=== PATIENT | male | born 1995 ===

== ENCOUNTER 2018-01-23 20:34 | Emergency (ER) | payer SELFPAY ==
[~2018-01-23] VITALS: Ht 188 cm; Wt 81.6 kg
--- NOTE | 2018-01-23 20:47 | NUR ---
PT PRESENTS TO ER W/ FACIAL LACERATION TO RT CHEEK. PER PT, HE WAS PLAYING BASKETBALL WHEN HE WAS HIT BY ANOTHER PLAYER, RESULTING IN LAC. DENIES LOC. PT IS [id number]&[id number]. NO ACTIVE BLEEDING OR DISTRESS NOTED.
--- NOTE | 2018-01-23 20:49 | NUR ---
DR ABENA MARSHALL MD AT BEDSIDE FOR MSE.
--- NOTE | 2018-01-23 20:55 | NUR ---
DR ABENA MARSHALL MD AT BEDSIDE FOR SUTURING.
--- NOTE | 2018-01-23 21:07 | NUR ---
Patient discharged to home in stable conditon. Written and verbal after care instructions given. Patient verbalizes understanding of instructions. PT ambulated from ER w/ steady gait. Denies N/V, dizziness, or headache. No bleeding noted at site. No distress noted. Pt took all personal belongings.
[2018-01-23 21:10] VITALS: BP 133/84
[2018-01-23] MEDS ORDERED: LIDOCAINE HCL 2% 20 ML VIAL TP ONE (21:15)
== END 2018-01-23 21:15 | disposition home or self-care (01) ==
LOC: ER 20:38
DX: S01.81XA Laceration without foreign body of other part of head, initial encounter (principal); W51.XXXA Accidental striking against or bumped into by another person, initial encounter; Y93.67 Activity, basketball; Y92.89 Other specified places as the place of occurrence of the external cause; Y99.8 Other external cause status
CPT/HCPCS: A4663

== ENCOUNTER 2018-01-31 17:01 | Emergency (ER) | payer SELFPAY ==
[~2018-01-31] VITALS: Ht 188 cm; Wt 81.6 kg
--- NOTE | 2018-01-31 17:42 | NUR ---
FACE SUTURE REMOVED PER MD REQUEST. NO S/S INFECTION NOTED. PT TOLORATED WELL,
[2018-01-31 17:45] VITALS: BP 116/85
== END 2018-01-31 17:47 | disposition home or self-care (01) ==
LOC: ER 17:01
DX: S01.81XD Laceration without foreign body of other part of head, subsequent encounter (principal); Z48.02 Encounter for removal of sutures; X58.XXXD Exposure to other specified factors, subsequent encounter
CPT/HCPCS: A4663